=== PATIENT | male | born 1950 | race Caucasian/White ===

== ENCOUNTER 2019-02-16 08:47 | Outpatient (CLI) | payer MEDICARE, OTHER ==
--- NOTE | 2019-02-16 09:13 | CT ---
Cervical spine CT without contrast: 02/16/2019 COMPARISON: None HISTORY: Pain, radiculopathy TECHNIQUE: Axial CT imaging at 2 mm intervals from skull base through lung apices without contrast. C oronal and sagittal reformatted imaging obtained. FINDINGS: The imaged lung apices are unremarkable. Evaluation for central canal and/or neural foramin al stenosis is limited on noncontrast enhanced CT examination. There is moderate degenerative change at the atlantoaxial interspace. C2-3: No osseous cause of significant central canal or neural foraminal stenosis. C3-4: Mild right uncovertebral osteophyte formation. No osseous cause of significant central canal or neural foraminal stenosis. C4-5: Facet and uncovertebral osteophyte formation noted bilaterally, left greater than right. Probab le mild left neural foraminal stenosis. No osseous cause of significant central canal or right neural foraminal stenosis. C5-6: Mild left facet and uncovertebral osteophyte formation. Probable mild left neural foraminal char[place] nosis. No osseous cause of significant central canal or right neural foraminal stenosis. C6-7: Mild right uncovertebral osteophyte formation. No osseous cause of significant central canal or neural foraminal stenosis C7-T1: No osseous cause of significant central canal or neural foraminal stenosis. No acute fracture or dislocation. No prevertebral soft tissue swelling. No lytic or blastic bone lesi on. IMPRESSION: Mild cervical spine degenerative change. If there is clinical concern for underlying cent ral canal and/or neural foraminal stenosis, cervical spine MRI suggested.
== END 2019-02-16 08:48 | disposition home or self-care (01) ==
LOC: TBSIIMAG 08:47
PROVIDERS: ATTEND Neurological Surgery
DX: M47.22 Other spondylosis with radiculopathy, cervical region (principal)
CPT/HCPCS: 72125

== ENCOUNTER 2019-03-25 08:20 | Outpatient (CLI) | payer MEDICARE, OTHER ==
--- NOTE | 2019-03-25 12:45 | MRI ---
LEFT ANKLE MRI WITHOUT IV CONTRAST: HISTORY: Left ankle and foot pain with swelling for 1 month. FINDINGS: There is fairly extensive abnormal marrow edema involving the posterior lateral talar dome, evidence for an insufficiency or a stress-type fracture with adjacent abnormal marrow edema as well as some ma rrow edema extending into the head and neck of the talus. Some of the abnormal signal in the talar n rachelle is somewhat more focal and could represent a second focus of insufficiency or stress fracture epi nge. There is evidence for tibiotalar ankle joint effusion. Arthrosis changes are noted involving t he medial cuneiform 1st metatarsal joint as well as the middle cuneiform second metatarsal joint. Fl exor, extensor, and peroneus tendons appear intact. Achilles tendon and plantar fascia appear unrema rkable. Ankle collateral ligament complexes appear intact. Sinus tarsi and spring ligament region a ppears unremarkable. There is note of some type of susceptibility artifact superficially medially at the level of the distal tibia. IMPRESSION: 1. Subchondral insufficiency/stress-type fracture involving the posterior lateral talar dome with so me adjacent marrow edema as well as a potential second focus of insufficiency fracture or stress-rela edin changes within the talar neck. 2. 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 No evidence for other significant acute internal derangement. POS: CHUNG
== END 2019-03-25 08:21 | disposition home or self-care (01) ==
LOC: SCSMRI 08:20
PROVIDERS: ATTEND Family Medicine
DX: S96.912A Strain of unspecified muscle and tendon at ankle and foot level, left foot, initial encounter (principal); M19.072 Primary osteoarthritis, left ankle and foot